=== PATIENT | male | born 1950 | race Two or more races ===

== ENCOUNTER 2025-03-01 21:37 | Emergency (ER) | payer MEDICAID ==
[~2025-03-01] VITALS: Ht 160 cm; Wt 85.3 kg
[2025-03-01 21:41] VITALS: O2SAT 98
[2025-03-02 02:12] VITALS: BP 151/87; PULSE 58; RESP 14; TEMP 36.7; O2SAT 97
== END 2025-03-02 02:14 | disposition home or self-care (01) ==
LOC: ER 21:37
DX: T18.108A Unspecified foreign body in esophagus causing other injury, initial encounter (principal); M54.2 Cervicalgia; W44.F3XA Food entering into or through a natural orifice, initial encounter; Y93.89 Activity, other specified; Y92.89 Other specified places as the place of occurrence of the external cause; Y99.8 Other external cause status
CPT/HCPCS: 70490; 99284